=== PATIENT | female | born 1950 | race Caucasian/White ===

== ENCOUNTER 2019-11-27 13:27 | Emergency (ER) | payer SELFPAY | END 2019-11-27 13:51 | PROVIDERS: Emergency Provider Physician Assistant; PCP Internal Medicine | DX: R69 Illness, unspecified (principal) ==

== ENCOUNTER → 2023-04-06 01:59 | Outpatient (CLI) | payer MEDICARE, SELFPAY ==
--- NOTE | 2023-04-06 07:30 | DI.US_ITS ---
APPROVED REPORT EXAM: Comprehensive 2D, Doppler, and color-flow Echocardiogram Patient Location: Out-Patient Senior Quality Analyst: Desmond Suero RDCS (AE) Indications: HTN, breast cancer, palpitations, tachycardia Other Information Study Quality: Good Conclusion Normal left ventricular wall thickness and chamber size. Ejection fraction is 60%. Wall motion is n ormal Normal right ventricular size and systolic function Both atria are normal in size Aortic valve is mildly sclerotic and trileaflet without stenosis or regurgitation Mild mitral annular calcification. Mild mitral regurgitation Normal tricuspid valve with mild regurgitation. Estimated right ventricular systolic pressure is 26 mmHg Wall motion Left Ventricle The left ventricle is normal size. The left ventricular systolic function is normal. The left ventric ular ejection fraction is within the normal range. There is normal left ventricular wall thickness. T here is normal LV segmental wall motion. There is no ventricular septal defect visualized. LVEF is 60 %. Right Ventricle The right ventricle is normal size. The right ventricular systolic function is normal. The RVSP is 25 .7 mmHg. Atria The left atrium size is normal. The right atrium size is normal. The interatrial septum is intact wit h no evidence for an atrial septal defect. Aortic Valve The Aortic valve is mildly sclerotic. Aortic valve is trileaflet. There is no aortic valvular stenosi s. No aortic regurgitation is present. Mitral Valve Mild mitral annular calcification. No evidence of mitral valve stenosis. Mild mitral regurgitation. Tricuspid Valve The tricuspid valve is normal in structure. There is no tricuspid valve stenosis. Mild tricuspid regu rgitation. Pulmonic Valve The pulmonary valve is normal in structure. There is no pulmonic valvular stenosis. There is no pulmo jared valvular regurgitation. Great Vessels The aortic root is normal in size. The ascending aorta is normal . Aortic arch is not well visualized . IVC is normal in size and collapses >50% with inspiration. Pericardium There is no pericardial effusion. 2D Dimensions IVSD d PLAX 0.86 cm F: 0.6-1.0 Ao Root d 3.05 cm F: 2.7 - 3.3 LVPW d PLAX 0.87 cm F: 0.6 - 1.0 Ao Asc Diam d 3.25 cm F: 2.3 - 3.1 LVID d PLAX 4.38 cm F: 3.8 - 5.2 LVDs 3.06 cm F: 2.2 - 3.5 LV EF Teichholz 57.5 % FS 30.00 % LV EDV (Teich) 86.5 mL LV ESV (Teich) 36.8 mL Stroke Vol Index (Teich) 28.09 M-Mode TAPSE 2.03 cm (M/F) >1.7 Auto EF LV EDV A4C 69.7 mL LV EDV A2C 73.8 mL LV EDV BP 74.2 mL LV ESV A4C 28.9 mL LV ESV A2C 29.9 mL LV ESV BP 30.0 mL LVEF(%) A4C 58.6 % LVEF(%) A2C 59.5 % LVEF(%) BP 59.6 % LV SV A4C 40.8 ml LV SV A2C 43.9 ml LV SV BP 44.2 ml LV CO A4C 2.4 L/min LV CO A2C 2.7 L/min LV CO BP 2.6 L/min HR A4C 59.90 BPM HR A2C 60.61 BPM LV EDV Index (BP) LA Volume LA Length A4C 4.2 cm LA Length A2C LA Area A4C s 10.46 cm2 LA Area A2C s LA Vol A4C A-L 22.38 mL LA Vol A2C A-L LA Vol Biplane A-L LA Vol A4C MOD 21.9 mL LA Vol A2C MOD LA Vol BP MOD RA Volume RA Area A4C 9.9 cm2 RA ESV A4C (A-L) 18.6mL RA Vol/BSA A4C A-L RA Length A4C 4.5 cm RA ESV A4C (MOD) 17.4mL LV Diastology MV E' medial 0.063 (>0.07 m/s) MV E Vmax 0.79 (0.4-1.3 m/s) MV E/E' MED 12.55 (<14) MV A Vmax 0.80 (0.4-1.3 m/s) MV E' lateral 0.061 (>0.1 m/s) E/A Ratio 1.0 MV E/E' LAT 12.91 (<14) MV E' Average 0.062 m/s MV E/E'(average) 12.73 Aortic Valve AoV Vmax 0.89 m/s LVOT Vmax 0.79 m/s AoV Peak Grad 3.2 mmHg LVOT Peak Grad 2.5 mmHg AoV Area (Vmax) 3.42 cm2 LVOT VTI 0.192 m AoV VTI 0.209 m LVOT Mean Grad 1.3 mmHg AoV Mean Nathan. 0.58 m/s LVOT SV 74.08 mL AoV Mean Grad 1.6 mmHg LVOT Diam s 2.20 cm AoV Area (VTI) 3.54 cm2 Velocity Ratio 0.89 Mitral Valve MV DT 141 (160-240 msec) Pulmonary Valve PV Vmax 0.58 (0.5-1.5 m/s) RVOT Vmax 0.32 m/s PV Peak Grad 1.4 mmHg RVOT Peak Gr. 0.4 mmHg PV Mean Nathan 0.43 m/s RVOT VTI 0.071 m PV Mean Grad 0.8 mmHg RVOT Mean Gr. 0.3 mmHg Tricuspid Valve RA Pressure 3.00 mmHg TR Vmax 2.38 m/s TR Peak Grad 22.6 mmHg RVSP (TR) 25.7 mmHg
== END ==
PROVIDERS: PCP Internal Medicine; Visit Provider Family Medicine
DX: I10 Essential (primary) hypertension (principal)
CPT/HCPCS: 93306

== ENCOUNTER 2024-01-19 08:45 | Emergency (ER) | payer OTHER, SELFPAY ==
--- NOTE | 2024-01-19 08:45 | DI.CT_ITS ---
Exam(s) CT HEAD WO EXAM: CT HEAD WO CLINICAL HISTORY: fell hit head, on xarelto. TECHNIQUE: Imaging Protocol: Axial computed tomography images with coronal and sagittal reformatted images were created and reviewed COMPARISON: No exams were available for comparison FINDINGS: Ventricles and Extra axial spaces: Normal in size and morphology for the patient's age. Hemorrhage: None. Cerebral parenchyma: Age-related microvascular ischemic disease is present. No mass effect is identi fied. Midline shift: None. Brainstem/Cerebellum: Normal. Calvarium: Normal. Visualized Paranasal sinuses/Mastoids: Clear. Soft Tissues: Unremarkable. IMPRESSION: No acute intracranial process. RADIATION DOSE DELIVERED: 683.16mGy.cm Total DLP DATA REPOSITORY: All CT scans at this facility are submitted to the National Radiology Data Registry (NRDR) Dose Index Registry (DIR) with the [employer] (ACR). RADIATION OPTIMIZATION: All CT scans at this facility use at least one of these dose optimization te chniques: automated exposure control; mA and/or kV adjustment per patient size (includes targeted exa ms where dose is matched to clinical indication); or iterative reconstruction.
[2024-01-19 08:48] VITALS: BP 138/88; PULSE 73; RESP 15; TEMP 36.1; O2SAT 98
--- NOTE | 2024-01-19 08:57 | W.ED.GENAD ---
Discharge Plan Disposition Patient Disposition: Home Condition: Stable Discharge Details Clinical Impression: Blunt head trauma, Contusion of knee, left, Contusion of right elbow Primary Care Provider: Mercy Rodriguez ED Provider: Raymond Bragg Discharge Instructions Additional Instructions: You can take 1000 mg of Tylenol every 6 hours as needed, do not exceed 3000 mg in 24 hours. If you still have lingering headaches, pain in your elbow, knee, or issues with the memory within a week follow-up with your primary care provider If you feel more ill or have severe worsening pain or persistent vomiting return to the emergency department for reevaluation HPI General Mode of arrival: ambulatory. Date/Time Provider Initiated Documentation: 01/19/24 08:45. Limitations to Documentation: no limitations. Information obtained by: patient. History of Present Illness 74 year old F presents to the emergency department with the chief complaint of slipped on water, hit her head, described as mild, Patient started experiencing this minute(s) (30) and it has been constant. No relieving factors improve symptom(s), No exacerbating factors reported . Patient notes other (right elbow, left knee pain). Patient did receive the following treatments prior to arrival, none Related Data Allergies Allergy/AdvReac Type Severity Reaction Status Date / Time benzoyl peroxide Allergy Verified 07/30/20 13:07 thimerosal Allergy Verified 07/30/20 13:07 General Stated Complaint: HeadInjury GERMAN: 3 Review of Systems All systems reviewed & are unremarkable except as noted in HPI and below Constitutional Constitutional: Denies weakness Eyes Eyes: Denies loss of vision Cardiovascular Cardiovascular: Denies chest pain and Denies dyspnea Respiratory Respiratory: Denies dyspnea Gastrointestinal Gastrointestinal: Denies vomiting Neurologic Neurologic: Denies loss of vision and Denies weakness Exam Const General: no acute distress Orientation: alert [facility] Head: normal to inspection Ears: external ears normal General nose exam: external nose normal Mouth: moist mucous membranes Eyes General: appearance normal, both eyes and all related structures Neck Neck: normal visual inspection Resp Effort & Inspection: normal respiratory effort and able to speak in complete sentences Cardio Rate: regular rate Skin General skin exam: no rashes or lesions noted Neuro General: patient alert and patient oriented x3 Extrem General: normal to inspection, full ROM and capillary refill normal Psych Mental Status: mental status grossly normal Course Vital Signs Vital signs: Vital Signs Temperature 36.1 C L 01/19/24 08:48 Pulse 73 01/19/24 08:48 Respiratory Rate 15 01/19/24 08:48 Blood Pressure 138/88 01/19/24 08:48 Pulse Oximetry 98 01/19/24 08:48 Temperature 36.1 C L 01/19/24 08:48 Temperature Source Temporal Artery Scan 01/19/24 08:48 Pulse 73 01/19/24 08:48 Respiratory Rate 15 01/19/24 08:48 Respiratory Effort Normal 01/19/24 08:52 Blood Pressure 138/88 01/19/24 08:48 Blood Pressure Position Sitting 01/19/24 08:48 Pulse Oximetry 98 01/19/24 08:48 Oxygen Delivery Method Room Air 01/19/24 08:48 Oxygen Flow Rate 0 01/19/24 08:48 Pain Level 0 01/19/24 08:48 Medical Decision Making 74-year-old female with a history of DVT/PE on Xarelto comes in after she was walking on tile and slipped on some water landing on the back of her head. Denies loss of consciousness and states prior to this felt fine without any systemic symptoms. States this was purely mechanical slip from water being on the ground. She initially had head pain but now has no pain. She denies any neck, back, chest, abdomen pain. She has had some pain on the right olecranon and left lateral knee. She is ambulatory on arrival and appears well speaking in full sentences. She has no lax or abrasions to the scalp, pupils are equal and reactive to light with full extraocular range of motion. She has no C-spine tenderness. She has full range of motion of the right elbow but does have tenderness over the olecranon and has full range of motion of the left knee but is tender on the lateral portion of the knee. No visible or palpable deformities of the knee or elbow. Will obtain x-rays of the knee and elbow given she is on Xarelto CT of her head. Patient stable ambulatory in no distress. All imaging negative. Still has no new symptoms. She is stable for discharge, advised follow-up with her PCP if lingering symptoms in a week and return precautions given Differential Diagnosis Differential Diagnosis: TBI concussion contusion fracture Imaging Data Radiologic Study: Attestation: I personally reviewed and interpreted this imaging study as follows: Imaging: CT Scan My impression: no acute findings head ct Radiologic Study #2: Attestation: I personally reviewed and interpreted this imaging study as follows: Imaging: X-Ray My impression: no acute findings elbow xray Radiologic Study #3: Attestation: I personally reviewed and interpreted this imaging study as follows: Imaging: X-Ray My impression: no acute findings knee xray Quality:SDOH Health Related Social Needs: No Data to Display PFSH All Active Problems (Updated 01/19/24 @ 09:44 by Raymond Bragg MD) Contusion of right elbow (Acute) Contusion of knee, left (Acute) Blunt head trauma (Acute) Encounter for screening for other viral diseases (Acute) Fever (Acute) Laceration (Acute) Left lower leg. Skin tear without sutures. Hypertension (Chronic) Diarrhea, functional (Acute) Lymphocytic colitis (Acute) Medical History (Updated 01/19/24 @ 09:44 by Raymond Bragg MD) SVT (supraventricular tachycardia) In her 30's Pulmonary emboli DVT (deep venous thrombosis) Surgical History (Updated 11/28/19 @ 13:41 by Kavon Whaley NP) History of lobectomy of lung Left Lower 06/2017 Social History (Updated 11/28/19 @ 13:37 by Kavon Whaley NP) Smoking/Tobacco Use Status: Former Tobacco Use Quit Date: 08/01/09 Smoking risk assessment performed?: Yes Alcohol Intake: current Alcohol Intake frequency: a few times a week Drug use: Never Substance use type: does not use
--- NOTE | 2024-01-19 09:37 | DI.RAD_ITS ---
Exam(s) XR KNEE LT 3V AP,LAT,AMI EXAM: XR KNEE LT 3V AP,LAT,AMI CLINICAL HISTORY: pain s/p fall. TECHNIQUE: 2D digital imaging was performed of the left knee. Four images were obtained. AP, later al and PA tunnel views were obtained. COMPARISON: No exams were available for comparison FINDINGS: BONES: No acute fracture is present. No bony destructive lesion is seen. There is a small enthesophy te at the superior patella. JOINTS: The knee is normally aligned. No joint effusion is seen. No loose body. SOFT TISSUE: Vascular calcifications are present. IMPRESSION: No acute fracture or dislocation. DATA REPOSITORY: RADIATION DOSE DELIVERED:
--- NOTE | 2024-01-19 09:37 | DI.RAD_ITS ---
Exam(s) XR ELBOW RT COMPLETE EXAM: XR ELBOW RT COMPLETE CLINICAL HISTORY: pain s/p fall. TECHNIQUE: 2D digital imaging was performed of the left elbow. Three images were obtained. AP, lat eral and oblique views were obtained. COMPARISON: No exams were available for comparison FINDINGS: BONES: No acute fracture is present. No bony destructive lesion is seen. There is a small spur off th e coronoid process. JOINTS: The elbow is normally aligned. No joint effusion is seen. SOFT TISSUE: Normal. IMPRESSION: No acute fracture or dislocation. DATA REPOSITORY: RADIATION DOSE DELIVERED:
== END 2024-01-19 10:25 | disposition home or self-care (01) ==
PROVIDERS: Emergency Provider Emergency Medicine; PCP Internal Medicine
DX: S09.8XXA Other specified injuries of head, initial encounter (principal); S80.02XA Contusion of left knee, initial encounter; S50.01XA Contusion of right elbow, initial encounter; Z86.711 Personal history of pulmonary embolism; Z86.718 Personal history of other venous thrombosis and embolism; Z79.01 Long term (current) use of anticoagulants; W01.0XXA Fall on same level from slipping, tripping and stumbling without subsequent striking against object, initial encounter; Y93.01 Activity, walking, marching and hiking; Y92.89 Other specified places as the place of occurrence of the external cause
CPT/HCPCS: 73562; 99284; 70450; 73080

== ENCOUNTER → 2025-06-05 02:19 | Outpatient (CLI) | payer MEDICARE, SELFPAY ==
--- NOTE | 2025-06-05 15:18 | DI.CT_ITS ---
Exam(s) CT CHEST WO EXAM: CT CHEST WO CLINICAL HISTORY: HX LUNG BRONCHUS CA Z85.118 ABNL FINDINGS R93.89 HX LUNG CANCER R/O LUNG CA. TECHNIQUE: Imaging protocol: Axial computed tomography images were obtained and coronal and sagittal reformatted images were created and reviewed. Lung Computer Aided Detection (CAD) was utilized. COMPARISON: No exams were available for comparison FINDINGS: Tracheobronchial tree: Patent where visualized. No bronchiectasis is present. Status post left lower lobectomy. Pulmonary parenchyma: No consolidation or dominant measurable mass. No architectural distortion. There are calcified granuloma present. There are 2 small ground-glass nodules in the left upper lobe. The larger measures 4 mm (series 2, image 36). Mediastinum and Chen: No dominant adenopathy or fluid collection. The esophagus is unremarkable. Thyroid gland: Unremarkable. Pleura: No effusion or pneumothorax. Heart: The heart is not dilated. Coronary artery calcifications are present. No pericardial effusion. Aorta: The ascending thoracic aorta measures 4 x 4.3 cm. Atherosclerotic calcification is present. Upper abdomen: Unremarkable. Lymph nodes: Within normal limits. Soft tissues: Unremarkable. Bones:Within normal limits for the patient's age. IMPRESSION: 1. Status post left lobectomy. 2. Two ground-glass nodules in the left upper lobe. The largest measuring 4 mm. In patients with multiple subsolid nodules smaller than 6 mm, one must consider infectious causes. Follow-up CT scan in 3 months is recommended. (Bharati et al., 2017) 3. There are no focal consolidating infiltrates. RADIATION DOSE DELIVERED: 167.93mGy.cm Total DLP 167.93mGy.cm Total DLP DATA REPOSITORY: All CT scans at this facility are submitted to the National Radiology Data Registry (NRDR) Dose Index Registry (DIR) with the [employer] (ACR). RADIATION OPTIMIZATION: All CT scans at this facility use at least one of these dose optimization techniques: automated exposure control; mA and/or kV adjustment per patient size (includes targeted exams where dose is matched to clinical indication); or iterative reconstruction.
== END ==
PROVIDERS: PCP Internal Medicine; Visit Provider Family Medicine
DX: Z85.118 Personal history of other malignant neoplasm of bronchus and lung (principal); R93.89 Abnormal findings on diagnostic imaging of other specified body structures
CPT/HCPCS: 71250